=== PATIENT | male | born 1940 | race Two or more races ===

== ENCOUNTER → 2019-06-22 06:00 | Outpatient (CLI) | payer OTHER ==
[~2019-06-22 06:00] MED LIST: ASPIRIN81 M1 PO; NORVASC5 MG PO; PROTONIX40 M1 PO; VASOTEC5 MG PO
== END | disposition home or self-care (01) ==
LOC: LAB 06:00 → ADM 08:00 → CIR.AMB 06-29 08:00 → EDSTATUS 06-29 08:00 → CIR.AMB 06-29 11:15
DX: K64.4 Residual hemorrhoidal skin tags (principal); K64.2 Third degree hemorrhoids; K59.09 Other constipation; R19.5 Other fecal abnormalities; Z01.810 Encounter for preprocedural cardiovascular examination; Z01.812 Encounter for preprocedural laboratory examination

== ENCOUNTER 2019-07-27 05:38 | Day surgery (SDC) | payer OTHER ==
[2019-07-27] MEDS ORDERED: PERCOCET 5-3251 EACH PO (08:31)
[2019-07-27] MEDS ORDERED: RECTICARE30 GM TOP (08:31)
== END 2019-07-27 13:45 | disposition home or self-care (01) ==
LOC: CIR.AMB 05:38
DX: K64.2 Third degree hemorrhoids (principal)